=== PATIENT | female | born 1990 | race African-American/Black ===

== ENCOUNTER 2017-01-17 15:42 | Emergency (ER) | payer SELFPAY ==
[2017-01-17 18:30] VITALS: BP 113/77
== END 2017-01-17 18:30 | disposition home or self-care (01) ==
LOC: ED 15:42
DX: J02.9 Acute pharyngitis, unspecified (principal); J34.89 Other specified disorders of nose and nasal sinuses; R51 Headache
CPT/HCPCS: J1100; J1885